=== PATIENT | male | born 1950 | race Caucasian/White ===

== ENCOUNTER 2018-08-18 13:12 | Outpatient (CLI) | payer OTHER ==
[~2018-08-18 13:12] MED LIST: CAR30T PO; CLOP75TA35 PO; DIGO0.25 PO; GEMF600T89 PO; LISI-600 PO; PANT-47 PO
== END 2018-08-18 23:59 | disposition home or self-care (01) ==
LOC: CARD DIAG 13:12
PROVIDERS: ATTEND Orthopaedic Surgery
DX: I48.91 Unspecified atrial fibrillation (principal); I10 Essential (primary) hypertension; E11.9 Type 2 diabetes mellitus without complications; Z88.7 Allergy status to serum and vaccine; Z79.899 Other long term (current) drug therapy
CPT/HCPCS: 93005; 93306